=== PATIENT | male | born 2000 | race Caucasian/White ===

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

== ENCOUNTER 2024-06-14 19:17 | Emergency (ER) | payer OTHER ==
[~2024-06-14] VITALS: Ht 172.7 cm; Wt 86.9 kg
[2024-06-14] MEDS ORDERED: IBUP-1022 PO (19:23)
[2024-06-14] MEDS ORDERED: HOLTER MONITOR XX (20:25)
[2024-06-14] MEDS ORDERED: FLUTISP (22:19)
[2024-06-14] MEDS ORDERED: ALL10TAB2 PO (22:19)
[2024-06-14 22:28] VITALS: BP 119/72; TEMP 98.2; O2SAT 100
== END 2024-06-14 22:30 | disposition home or self-care (01) ==
LOC: M ED 19:17
DX: J02.9 Acute pharyngitis, unspecified (principal); Z79.899 Other long term (current) drug therapy; Z79.1 Long term (current) use of non-steroidal anti-inflammatories (NSAID)

== ENCOUNTER 2025-06-03 15:11 | Emergency (ER) | payer OTHER, SELFPAY ==
[~2025-06-03] VITALS: Ht 175.3 cm; Wt 78.5 kg
[~2025-06-03 15:11] MED LIST changes: +ALL10TAB2 PO; +FLUTISP; +HOLTER MONITOR XX; +IBUP-1022 PO
[2025-06-03 15:17] VITALS: BP 120/70; TEMP 98; O2SAT 100
== END 2025-06-03 15:51 | disposition left against medical advice (07) ==
LOC: M ED 15:11
DX: Z53.21 Procedure and treatment not carried out due to patient leaving prior to being seen by health care provider (principal)